=== PATIENT | male | born 1945 | race Caucasian/White ===

== ENCOUNTER 2020-05-16 08:38 | Day surgery (SDC) | payer MEDICARE, OTHER ==
[~2020-05-16 08:38] MED LIST: ASPI-696 PO; ATOR-2 PO; ATOR10TA PO; CLOP75TA PO
[2020-05-16] MEDS ORDERED: LIDOCAINE 2%, 20ML ONE (09:19)
== END 2020-05-16 09:40 | disposition home or self-care (01) ==
LOC: CACL 08:38
PROVIDERS: ATTEND Internal Medicine Cardiovascular Disease
DX: I63.9 Cerebral infarction, unspecified (principal); Q21.1 Atrial septal defect; I10 Essential (primary) hypertension; E78.2 Mixed hyperlipidemia; Z79.02 Long term (current) use of antithrombotics/antiplatelets; Z79.82 Long term (current) use of aspirin; Z79.899 Other long term (current) drug therapy; Z87.891 Personal history of nicotine dependence; Z91.048 Other nonmedicinal substance allergy status
CPT/HCPCS: 33285; C1764